=== PATIENT | male | born 1990 | race Native Hawaiian/Other Pacific Islander ===

== ENCOUNTER 2020-09-01 22:01 | Emergency (ER) | payer OTHER ==
[~2020-09-01] VITALS: Ht 182.9 cm; Wt 102.1 kg
[2020-09-01 23:11] LABS: PLATELET COUNT 243 K/uL (142-355)
[2020-09-01 23:19] LABS: POTASSIUM 4.3 mmol/L (3.6-5.2)
[2020-09-02 00:20] VITALS: BP 120/74; TEMP 98.6
== END 2020-09-02 00:20 | disposition home or self-care (01) ==
LOC: ED 22:01
PROVIDERS: Emergency Medicine Emergency Medical Services
DX: B34.9 Viral infection, unspecified (principal); Z20.822 Contact with and (suspected) exposure to COVID-19
CPT/HCPCS: 36415; 80053; 85027; 87502; 87635; 99283; U0003